=== PATIENT | female | born 1990 | race Caucasian/White ===

== ENCOUNTER 2024-10-07 06:53 | Day surgery (SDC) | payer BC, OTHER ==
[2024-10-07] MEDS ORDERED: Propofol 200 MG/20 ML SDV ONE (07:08)
[2024-10-07] MEDS ORDERED: Midazolam 1 MG/ML 2 ML SDV ONE (07:08)
[2024-10-07] MEDS ORDERED: fentaNYL 100 MCG/2 ML SDV ONE (07:08)
[2024-10-07] MEDS: Lactated Ringers 1,000 ML IV SCH (07:55)
== END 2024-10-07 10:15 | disposition home or self-care (01) ==
LOC: JP.SDS 06:53
PROVIDERS: ATTEND Surgery
DX: D50.9 Iron deficiency anemia, unspecified (principal); K22.89 Other specified disease of esophagus
CPT/HCPCS: 43239; 45380; 81025; J2250; J2704; J3010; J7120; 00813-QZ